=== PATIENT | male | born 1955 | race Caucasian/White ===

== ENCOUNTER 2017-12-05 08:31 | Inpatient (IN) | payer BC ==
[2017-11-25 09:20] VITALS: BMI 28.0
--- NOTE | 2017-11-25 09:40 | PAT Medication Instructions ---
Service Date Nov 25, 2017. Current Home Medication List Naproxen (Naprosyn), 500 MG PO BID Medication Instructions For Your Scheduled Surgery - Check with surgeon and for instructions: Naproxen (Naprosyn), 500 MG PO BID If you have any questions please call us at [phone] or [phone] or [phone]
[2017-11-25 10:13] LABS: BASO % 0.5 %; BASO ABS # 0.03 K/uL (0-0.2); EOS ABS # 0.06 K/uL (0-0.5); HEMATOCRIT 44.1 % (42-52); HEMOGLOBIN 15.5 g/dL (14.0-18.0); IG# 0.03 K/uL (0.00-0.02); LYMPH % 32.2 %; LYMPH ABS # 1.94 K/uL (1.2-3.4); MEAN CELL VOLUME 86.3 fL (80-100); MEAN CORPUSCULAR HEMOGLOBIN 30.3 pg (25-34); MEAN CORPUSCULAR HGB CONC 35.1 g/dl (32-36); MEAN PLATELET VOLUME 11.2 fL (7.4-10.4); MONO % 10.1 %; MONO ABS # 0.61 K/uL (0.11-0.59); NEUT % 55.7 %; NEUT ABS # 3.36 K/uL (1.4-6.5); PLATELET COUNT 219 K/uL (130-400); RED CELL DISTRIBUTION WIDTH CV 12.1 % (11.5-14.5); RED CELL DISTRIBUTION WIDTH SD 38.3 fL (36.4-46.3); WHITE BLOOD COUNT 6.03 K/uL (4.8-10.8)
--- NOTE | 2017-11-25 10:17 | DIAGNOSTIC IMAGING REPORT ---
CHEST 2 VIEWS ROUTINE HISTORY: 62 years-old Male PAT preoperative exam. No acute chest complaints COMPARISON: None available TECHNIQUE: PA and lateral views of the chest FINDINGS: Cardiomediastinal and hilar silhouettes are within normal limits. Minimal linear subsegmental atelectasis or scarring of the lingula. There is no pneumothorax, pleural effusion, focal airspace consolidation or overt pulmonary edema. The bones of the chest appear grossly intact. Minimal multilevel endplate spurring of the spine. IMPRESSION: No acute process. The above report was generated using voice recognition software. It may contain grammatical, syntax or spelling errors. Electronically signed by: Desmodn Dang M.D. 11/25/2017 10:15 AM Dictated Date/Time: 11/25/2017 10:14 AM
[2017-11-25 10:26] LABS: PTT PATIENT 26.2 SECONDS (21.0-31.0)
[2017-11-25 12:19] LABS: CREATININE 1.15 mg/dl (0.60-1.40); POTASSIUM 3.9 mmol/L (3.5-5.1)
--- NOTE | 2017-12-04 19:11 | HISTORY & PHYSICAL EXAMINATION ---
DATE OF ADMISSION: 12/05/2017 CHIEF COMPLAINT: Back pain, lower extremity difficulty, paresthesias, numbness and tingling, weakness as well. HISTORY OF PRESENT ILLNESS: Pietro is 62 years of age. He had progressive pain and progressive weakness to the lower extremities. He is set up for elective spinal surgery reconstruction. PAST MEDICAL HISTORY: Negative liver or kidney issues. No carcinoma. No hypertension. No abnormal EKG. Never difficulty with anesthesia. No diabetes, no anemia. No anxiety, lung conditions or heart conditions. PAST SURGICAL HISTORY: Negative. ALLERGIES: Negative. MEDICATIONS: ANTI-INFLAMMATORY, NAPROXEN. REVIEW OF SYSTEMS: Denies any blurred vision, double vision, tinnitus, vertigo, change in mentation. Denies any chest pain, palpitations. Denies asthma, wheezing, shortness of breath. Denies nausea, vomiting, urgency, frequency. Denies dysuria. He has back pain, lower extremity difficulties. PHYSICAL EXAMINATION: VITAL SIGNS: Height 6 foot 2 inches, weight 220, blood pressure 130/80, pulse of 80, respiration rate 16, temperature 97.4. HEENT: Pupils react to light and accommodation. Ear, nose and throat clear. CARDIAC: Normal S1, S2, no S3. LUNGS: Clear to auscultation. No rales, rhonchi or wheezing. ABDOMEN: Soft, nontender, bowel sounds present. EXTREMITIES: Intact x4. He has weakness with dorsiflexion. Pain with flexion, extension, slight gait abnormality. IMAGES: Demonstrate spondylolisthesis, lumbar spine L4-L5. DISPOSITION: Includes a posterior lumbar interbody fusion L4-5, at [facility] on December 05.
[~2017-12-05] VITALS: Ht 188 cm; Wt 99.6 kg
[2017-12-05] VITALS (8 sets, daily range): BP systolic 107–169; BP diastolic 64–90; PULSE 71–87; TEMP 36.4–36.8; O2SAT 94–99; Ht 188 cm; Wt 99.6 kg
[~2017-12-05 08:31] MED LIST: ACETAMINOPHEN 500 MG TAB PO SCH; CEFAZOLIN 2000MG IV PUSH 15 ML IV SCH; CeleBREX 200 MG CAP PO SCH; GABAPENTIN 600 MG PO SCH; LACTATED RINGER'S 1000ML 1,000 ML IV SCH; NAPR-1169 PO; NSS 1000ML IV SCH
[2017-12-05] MEDS ORDERED: HYDROmorphone INJ 1 MG/ML SYR IV PRN (09:30)
[2017-12-05] MEDS ORDERED: EpHEDrine SULFATE INJ 50 MG/ML AMP IV PRN (09:30)
[2017-12-05] MEDS ORDERED: MEPERIDINE HCL 25 MG/ML CARP IV PRN (09:30)
[2017-12-05] MEDS ORDERED: LABETALOL HCL IV 5 MG/ML 20ML IV PRN (09:30)
[2017-12-05] MEDS ORDERED: ONDANSETRON INJ 2 MG/ML 2 ML VIAL IV PRN ×2 (09:30→13:45)
[2017-12-05] MEDS ORDERED: ATROPINE SULFATE 0.1 MG/ML 5ML SYR IV PRN (09:30)
[2017-12-05] MEDS ORDERED: GELATIN SPONGE SZ 100 ONE (10:06)
[2017-12-05] MEDS ORDERED: BACITRACIN 50000 UNIT VIAL ONE (10:07)
[2017-12-05] MEDS ORDERED: VANCOMYCIN HCL 1000MG/20ML VIAL ONE ×2 (10:07→10:38)
[2017-12-05] MEDS ORDERED: THROMBIN FOR SOLN 20000 UNIT KIT ONE (10:07)
[2017-12-05] MEDS ORDERED: BUPIVACAINE/EPINEPHRINE 0.5% MPF 1:200,000 30 ML VIAL ONE (10:16)
[2017-12-05] MEDS ORDERED: FENTANYL CITRATE INJ 50 MCG/1 ML 2 ML VIAL ONE ×3 (10:19→13:02)
[2017-12-05] MEDS ORDERED: MIDAZOLAM HCL 1 MG/ML 2ML VIAL ONE (10:19)
--- NOTE | 2017-12-05 10:20 | History & Physical Bridge Note ---
H&P Re-Evaluation Bridge Note: I have examined the patient, reviewed the History & Physical and in the interval since the performance of the History & Physical I have noted the following changes of clinical significance: No changes noted
[2017-12-05] MEDS ORDERED: LIDOCAINE HCL 2% 2 ML VIAL (20MG/ML) ONE ×2 (11:14)
[2017-12-05] MEDS ORDERED: PROPOFOL IV EMULSION 10 MG/ML 20 ML VIAL IV ONE (11:14)
[2017-12-05] MEDS ORDERED: EpHEDrine SULFATE 50MG/5ML SYR ONE (11:15)
[2017-12-05] MEDS ORDERED: DEXAMETHASONE SOD INJ 4 MG/ML VIAL ONE (11:15)
[2017-12-05] MEDS ORDERED: GLYCOPYRROLATE INJ 0.2 MG/ML VIAL ONE (11:15)
[2017-12-05] MEDS ORDERED: NEOSTIGMINE METHYLSULFATE 5 MG/5 ML SYR ONE (11:15)
[2017-12-05] MEDS ORDERED: ONDANSETRON INJ 2 MG/ML 2 ML VIAL ONE (11:15)
[2017-12-05] MEDS ORDERED: ROCURONIUM BROMIDE 10 MG/ML 5 ML VIAL IV ONE ×2 (11:15→13:44)
--- NOTE | 2017-12-05 13:15 | DIAGNOSTIC IMAGING REPORT ---
SPINE ONE VIEW, ANY LEVEL CLINICAL HISTORY: L4-5 FUSION/INTERBODY COMPARISON STUDY: Lumbar spine MRI May 31, 2016 and lumbar spine radiographs November 22, 2017. Fluoroscopy time: 11.5 seconds. FINDINGS: Single lateral fluoroscopic image demonstrates an L4-L5 discectomy with interbody spacer placement. Anterolisthesis of L4 and L5 is unchanged. There are bilateral pedicle screws at the L4 and L5 levels. IMPRESSION: Fluoroscopic image demonstrating L4-L5 discectomy and placement of bilateral pedicle screws at these levels. Electronically signed by: Elroy Fountain M.D. 12/05/2017 1:13 PM Dictated Date/Time: 12/05/2017 1:12 PM
--- NOTE | 2017-12-05 13:27 | [facility] Post Operative Brief Note ---
Immediate Operative Summary Operative Date Dec 05, 2017. Pre-Operative Diagnosis Spondylolisthesis, lumbar spine L4-L5 Post-Operative Diagnosis Spondylolisthesis, lumbar spine L4-L5 Procedure(s) Performed L4-L5 Posterior Lumbar Interbody Fusion Surgeon Dr. Godwin Jones [employer] Surgeon(s) Ifeanyi Lockwood PA-C Estimated Blood Loss 300 cc Findings Consistent with Post-Op Diagnosis Specimens no specimen, as per surgeon Anesthesia Type General Complication(s) none Disposition Disposition: Recovery Room / PACU
[2017-12-05] MEDS ORDERED: SODIUM CHLORIDE 0.9% 1000ML 1,000 ML IV SCH (13:33)
[2017-12-05] MEDS ORDERED: PROMETHAZINE HCL INJ 12.5 MG in SODIUM CHLORIDE 0.9% 50ML 50 ML IV PRN (13:45)
[2017-12-05] MEDS ORDERED: NALOXONE HCL 0.4 MG/1 ML VIAL/CARP IV PRN (13:45)
[2017-12-05] MEDS ORDERED: ACETAMINOPHEN 325 MG TAB PO PRN (13:45)
[2017-12-05] MEDS ORDERED: METOCLOPRAMIDE HCL INJ 5 MG/ML 2 ML VIAL IV PRN (13:45)
[2017-12-05] MEDS ORDERED: MAGNESIUM HYDROXIDE SUSP 30 ML UDC PO PRN (13:45)
[2017-12-05] MEDS ORDERED: LORAZEPAM INJ 1 MG in SYRINGE 0 ML IV PRN (13:45)
[2017-12-05] MEDS ORDERED: LORAZEPAM 1 MG TAB PO PRN (13:45)
[2017-12-05] MEDS ORDERED: HYDROmorphone HCL 0.5MG/ML 50 ML CASSETTE ONE (13:51)
[2017-12-05] MEDS: FENTANYL CITRATE INJ 50 MCG/1 ML 2 ML VIAL IV PRN ×2 (14:03→14:08)
[2017-12-05 14:14] LABS: HEMATOCRIT 40.5 % (42-52); HEMOGLOBIN 14.2 g/dL (14.0-18.0)
--- NOTE | 2017-12-05 14:22 | OPERATIVE REPORT ---
DATE OF OPERATION: 12/05/2017 PREOPERATIVE DIAGNOSIS: Stenosis and spondylolisthesis L4-L5, lumbar spine. POSTOPERATIVE DIAGNOSIS: Same. PROCEDURE: 1. Include a posterior approach lumbar spine decompression of the lumbar elements. 2. Complete Miranda procedure, meaning we took off the entire lamina. 3. Pedicle screw instrumentation, L4-L5. 4. Complete discectomy, L4-L5. 5. Posterior lumbar interbody fusion. 6. Posterior lateral fusion L4-5, all at the L4-5 level. SURGEON: Dr. Lynch. PHLEBOTOMY DIRECTOR: Ifeanyi Lockwood PA-C. COMPLICATIONS: Zero. BLOOD LOSS: 300 mL. ANESTHETIC: General. DESCRIPTION OF PROCEDURE: The patient was taken to the operating room, a general intubated anesthetic provided to the patient, placed prone, prepped and draped sterile. We made a skin incision from lumbar 3 down to the top of the sacrum dissecting the soft tissue. We took this soft tissue out over the transverse processes at L4-L5. There was an obvious spondylolisthesis, we did a Miranda procedure taking out the entire posterior element of the L4 vertebra. We then decompressed each nerve root getting the ligamentum flavum off and doing a complete discectomy. We then safely instrumented spine getting good pedicle screws at L5 and L4 bilaterally. I was pleased with the anatomic alignment. Instruments used by the [employer]. We then went on to the interbody aspect of procedure. We did an essentially complete discectomy L4-L5 from posterior approach from the left and the right side. I was pleased with all the disks that we were able to evacuate. We then put an interbody spacer in the intervertebral area between L4-L5, it measured 12 mm in height, 30 mm in length, 10 mm across, each was placed on left side and the right side, The fit was near anatomic. We irrigated thoroughly. We then placed the posterior construct under compression, tightened down the implants completely, irrigated with another 1 liter of fluid. We then bone grafted out over the transverse processes, completing a 360 degree fusion. We then placed vancomycin deep to room, closed over Hemovac drain with 1 Vicryl suture, 2 on the subcuticular layer, and 3-0 nylon on the skin. Sterile dressings applied. The patient extubated to PACU stable. No apparent interoperative complications. COUNTS: Sponge and needle count correct. IMPLANTS USED: By the [employer]. I attest to the content of the Intraoperative Record and any orders documented therein. Any exception s are noted below.
--- NOTE | 2017-12-05 14:25 | Anesthesiology Progress Note ---
Anesthesia Post Op Note Date & Time Dec 05, 2017 at 14:25 Vital Signs Pain Intensity: 2 Vital Signs Past 12 Hours Date Time Temp Pulse Resp B/P (MAP) Pulse Ox O2 Delivery O2 Flow Rate FiO2 12/05/17 13:45 36.5 98 16 132/69 98 Oxymask 7 12/05/17 09:15 36.5 76 20 169/90 97 Room Air Notes Mental Status: alert / awake / arousable, participated in evaluation Pt Amnestic to Procedure: Yes Nausea / Vomiting: adequately controlled Pain: adequately controlled Airway Patency, RR, SpO2: stable & adequate BP & HR: stable & adequate Hydration State: stable & adequate Anesthetic Complications: no major complications apparent
[2017-12-05] MEDS: HYDROmorphone HCL 0.5MG/ML 50 ML CASSETTE IV PRN ×3 (14:43→22:49)
[2017-12-05] MEDS: SODIUM CHLORIDE 0.9% 1000ML 1,000 ML IV SCH (16:07)
[2017-12-05] MEDS: CEFAZOLIN IV 2,000 MG in SYRINGE 0 ML IV SCH (18:08)
[2017-12-05] MEDS: KETOROLAC TROMETHAMINE 30 MG/ML VIAL IV. SCH ×2 (18:09→23:28)
[2017-12-05] MEDS: DEXAMETHASONE INJ 10 MG in SYRINGE 0 ML IV SCH (21:44)
[2017-12-06] MEDS: CEFAZOLIN IV 2,000 MG in SYRINGE 0 ML IV SCH ×2 (02:08→10:48)
[2017-12-06] MEDS: SODIUM CHLORIDE 0.9% 1000ML 1,000 ML IV SCH (02:13)
[2017-12-06 03:15] VITALS: BP 123/70; PULSE 77; TEMP 36.7; O2SAT 96
[2017-12-06] MEDS ORDERED: DC PCA SCH (06:00)
[2017-12-06] MEDS ORDERED: HYDROmorphone INJ 1 MG/ML SYR IV PRN ×2 (06:00)
[2017-12-06] MEDS ORDERED: BISACODYL 5 MG TABEC PO PRN (06:00)
[2017-12-06] MEDS ORDERED: BISACODYL 10 MG SUPP PR PRN (06:00)
[2017-12-06] MEDS ORDERED: OXYCODONE/ACETAMINOPHEN 5-325 TAB PO PRN ×2 (06:00)
[2017-12-06] MEDS: DEXAMETHASONE INJ 10 MG in SYRINGE 0 ML IV SCH ×3 (06:07→22:10)
[2017-12-06] MEDS: KETOROLAC TROMETHAMINE 30 MG/ML VIAL IV. SCH ×3 (06:08→17:56)
[2017-12-06] MEDS ORDERED: NURSING VERBAL MED ORDER ONE (06:15)
[2017-12-06 07:20] VITALS: BP 142/74; PULSE 61; TEMP 37; O2SAT 96
[2017-12-06] MEDS ORDERED: HYDR-5688 PO (08:01)
--- NOTE | 2017-12-06 08:03 | Discharge Instructions ---
Discharge Instructions Date of Service Dec 06, 2017. Admission Reason for Admission: Lumbar Spinal Stenosis, Spondylolisthesis L4-L5 Discharge Discharge Diagnosis / Problem: same Discharge Goals Goal(s): Improve function Activity Recommendations Activity Limitations: as noted below Lifting Limitations: until after follow-up appointment Exercise/Sports Limitations: until after follow-up appointment take it easy. . Instructions / Follow-Up Instructions / Follow-Up MEDICATIONS: Please take your prescriptions as instructed at your pre-op appointment. SPECIAL CARE: The following information is intended to answer some of the common questions and concerns regarding your surgery. Each patient is an individual and receives individual counselling throughout the course of treatment, from diagnosis to surgery all the way through recovery. What follows is not an exhaustive list, but should be a useful guide to some of the common questions and concerns patients have regarding their surgeries. These are not provided to keep you from calling us; rather, they give you something accurate and concrete to reference as you recover from your procedure. If you need us, we are available to you. As always, if you are not sure about something, call us at [phone]. MEDICAL EMERGENCIES: For these conditions, call 911 or go to your local hospital-based Emergency Department - not [facility] or equivalent. * Paralysis * Severe chest pain or difficulty breathing * Swelling or redness of either leg Spine procedures can be rather complex and though complications are rare, they do occur. In such cases, effective advice regarding emergency situations cannot always be addressed over the telephone. You may be referred to the emergency department for more effective management of your problem. Activity Limitations: It is important to give your body time to heal, so please limit your activities : * In general, don't do anything that moves your spine too much. You should avoid contact sports, twisting or heavy lifting while you recover. * 5-10 pounds is all you should attempt to lift. * You should not plan on driving for approximately 3 weeks and you should avoid traveling more than 30-45 minutes at a time. Longer trips should be broken down with walking breaks spaced appropriately. * Physical therapy is not usually required. * Walking and good posture practices will help you recover and regain your function. * Avoid straining or sudden changes in position. * In general, the goal is to take it easy and recover. Don't cause any new problems. Just relax. Showers: * Do not take a bath, use a Jacuzzi or hot tub or otherwise submerge your incision. * It is usually safe to take a shower 4-5 days after your surgery. * Your incision does not require any special creams or ointments. * Simply clean it with soap and water, dry and re-dress with a clean bandage afterwards. Incision: * Keep incision clean, dry and protected until your first follow-up appointment. * Some amount of drainage and redness is normal. Any drainage should be fairly clear and not have a foul odor. * If you feel anything is wrong or you have excessive drainage, please call us. * Your stitches and heidy will be removed 10-14 days after your surgery. At the time of your first post-op visit. * Neck surgeries are typically closed with a suture underneath the skin. The steri-strips over the incision should be maintained until we see you in the office. Bracing: * You may be provided with a back or neck brace to encourage good posture and prevent injury. It will remind you not to do too much as you heal and will alert others to the fact that you have had a surgery. * Back braces may be removed for showers and when you are resting at home. They must be worn when you are walking around for any period of time or for travel. * For neck surgery, you will likely be provided with two cervical collars. The soft collar ([place] or foam rubber) is worn most commonly throughout the day and while sleeping. The plastic collar (provided at the hospital) is for showering/bathing. * Except while eating, collars should remain in place. More specifically, bracing is provided for a purpose and should be worn. * Please obtain your brace or collars prior to your operation and bring them to the hospital with you on the day of surgery. * You should also bring your collars to your post-op appointment with Dr. Jones. You should always take good care of your body and practice healthy habits, especially following surgery. You should: * Follow your doctor's treatment plan * Sit and stand properly with good posture (ears over shoulders, shoulders over hips) Don't slouch * Learn to lift correctly * Exercise regularly (low-impact aerobic exercise is especially good, but check with your doctor first) * Generally, be up and walking for 5-10 minutes at a time at least 3-4 times per day from the day you get home * Increasing walking to tolerance until you can walk for 20-30 minutes at a time * Attain and maintain a healthy body weight * Eat healthy foods ( a well-balanced, low-fat diet rich in fruits and vegetables) and get enough calcium * Avoid excessive use of alcohol When to call our office - If you notice any of the following: * Increased pain not relieve by pain medicine * Fevers greater then 100 degrees F, chills or flu symptoms * Increased redness around incision * Drainage from the incision that is not clear * Any foul smelling drainage * Swelling or fluid collection beneath the skin Miscellaneous: * In the hospital, you may be given a walker or cane for support while walking. These are temporary needs and are intended to prevent injuries due to falls. You may discontinue them when you feel strong and steady enough on your feet. * Sleep in a comfortable position. We find that many patients find a lounge chair or recliner with several pillows to be beneficial in the early post-operative period. * The support stockings should be used for 7-10 days and may be discontinued when you are back to walking more and conducting usual household activities. No problem is insignificant. We are here to help you and get you well. Contact us at [phone]. Definitions: Foraminotomy: If part of the disc or a bone spur (osteophyte) is pressing on a nerve as it leaves the vertebra (through an exit called the foramen), a foraminotomy may be done. Otomy means "to make an opening." A foraminotomy is making the opening of the foramen larger, so the nerve can exit without being compressed. Laminotomy: Similar to the foraminotomy, a laminotomy makes a larger opening, this time in your bony plate protecting your spinal canal and spinal cord (the lamina). The lamina may be pressing on your nerve, so the surgeon may make more room for the nerves using a laminotomy. Laminectomy: Sometimes, a laminotomy is not sufficient. The surgeon may need to remove all or part of the lamina. This procedure is called a laminectomy. This can often be done at many levels without any harmful effects. Current Hospital Diet Patient's current hospital diet: Regular Diet Discharge Diet Recommended Diet: Regular Diet Procedures Procedures Performed: L4-L5 Posterior Lumbar Interbody Fusion Pending Studies Studies pending at discharge: no Medical Emergencies . Who to Call and When: Medical Emergencies: If at any time you feel your situation is an emergency, please call 911 immediately. . Non-Emergent Contact Non-Emergency issues call your: Primary Care Provider . "Provider Documentation" section prepared by Godwin Jones. . VTE Core Measure Inpt VTE Proph given/why not?: Treatment not indicated
[2017-12-06] MEDS: POLYETHYLENE (MIRALAX) 17 GM PACK PO SCH (09:06)
[2017-12-06 10:07] VITALS: BP 136/73; PULSE 70; O2SAT 97
[2017-12-06 11:50] VITALS: BP 128/63; PULSE 69; TEMP 36.8; O2SAT 96
[2017-12-06 15:00] VITALS: BP 136/64; PULSE 65; TEMP 36.8; O2SAT 95
[2017-12-06 22:58] VITALS: BP 119/56; PULSE 78; TEMP 36.8; O2SAT 95
[2017-12-07] MEDS: DEXAMETHASONE INJ 10 MG in SYRINGE 0 ML IV SCH (05:31)
[2017-12-07 08:28] VITALS: BP 130/82; PULSE 72; TEMP 36.6; O2SAT 95
[2017-12-07 09:05] VITALS: BP 130/82; PULSE 72; TEMP 36.6; O2SAT 95
[2017-12-07] MEDS: POLYETHYLENE (MIRALAX) 17 GM PACK PO SCH (09:18)
[2017-12-07 09:22] VITALS: O2SAT 95
== END 2017-12-07 09:43 | disposition home or self-care (01) | DRG 455 ==
LOC: C.ACU 08:31 → C.3E 13:39 → ENRESERV 14:29
PROVIDERS: ADMIT Orthopaedic Surgery Orthopaedic Surgery of the Spine; ATTEND Orthopaedic Surgery Orthopaedic Surgery of the Spine
PROC: 0SG0071 Fusion of Lumbar Vertebral Joint with Autologous Tissue Substitute, Posterior Approach, Posterior Column, Open Approach (ICD-10-PCS; principal; 2017-12-05 10:30)
PROC: 0SG00AJ Fusion of Lumbar Vertebral Joint with Interbody Fusion Device, Posterior Approach, Anterior Column, Open Approach (ICD-10-PCS; principal; 2017-12-05 10:30)
PROC: 0ST20ZZ Resection of Lumbar Vertebral Disc, Open Approach (ICD-10-PCS; principal; 2017-12-05 10:30)
DX: M48.061 Spinal stenosis, lumbar region without neurogenic claudication (principal); M43.16 Spondylolisthesis, lumbar region; Z79.1 Long term (current) use of non-steroidal anti-inflammatories (NSAID)